=== PATIENT | female | born 1950 | race Caucasian/White ===

== ENCOUNTER → 2017-02-13 | Outpatient (CLI) | payer OTHER | LOC: FIMAGING 13:43 | DX: Z12.31 Encounter for screening mammogram for malignant neoplasm of breast (principal) | CPT/HCPCS: G0202 ==

== ENCOUNTER → 2018-02-14 | Outpatient (CLI) | payer OTHER | LOC: FIMAGING 13:12 | DX: Z12.31 Encounter for screening mammogram for malignant neoplasm of breast (principal) ==

== ENCOUNTER 2018-08-04 07:55 | Observation (INO) | payer OTHER ==
--- NOTE | 2018-08-04 08:12 | EDPHY ---
H & P Stated Complaint: slurred speech Time Seen by Provider: 08/04/18 08:00 HPI/ROS: CHIEF COMPLAINT: Slurred speech, difficulty walking HISTORY OF PRESENT ILLNESS: 68-year-old female presents after an episode of slurred speech and difficulty walking. She awoke at 0600 this morning and felt fine. She was in the car at 0700, coming to the hospital when she developed slurred speech, as if she were drunk and dropped an object that she was holding. Once she was out of the car, she was listing to one side and needed assistance to ambulate. The symptoms have now completely resolved. Her only complaint now is feeling sleepy. No headache or recent head injury. No prior similar symptoms. REVIEW OF SYSTEMS: complete 10 point ROS reviewed and is negative except for the noted elements in the HPI Source: Patient, Family - Social History Alcohol Use: Sober Drug Use: None Additional Social History: - Physical Exam Exam: General Appearance: Alert, pleasant, speech is clear Eyes: Pupils equal and round, no conjunctival pallor ENT, Mouth: Mucous membranes moist Neck: Normal inspection Respiratory: Lungs are clear to auscultation Cardiovascular: Regular rate and rhythm Gastrointestinal: Abdomen is soft and nontender Neurological: Alert, oriented x3, cranial nerves II through XII intact, motor 5 /5, sensory intact to light touch, normal gait Skin: Warm and dry, no rash Extremities: Nontender, no pedal edema Psychiatric: Mood and affect normal Constitutional: Initial Vital Signs Temperature (C) 37.1 C 08/04/18 08:01 Heart Rate 77 08/04/18 08:01 Respiratory Rate 18 08/04/18 08:01 Blood Pressure 132/89 H 08/04/18 08:01 O2 Sat (%) 92 08/04/18 08:01 O2 Delivery Mode Room Air Allergies/Adverse Reactions: shellfish derived Allergy (Verified 08/04/18 08:08) Home Medications: Medication Instructions Recorded Acetaminophen [Tylenol 325mg (*)] 650 mg PO BID PRN 08/04/18 Calcium Carbonate [Oyster Shell 1,500 mg PO DAILY 08/04/18 Calcium 500 mg (*)] Cholecalciferol Vit D3 [Vitamin D3 1,000 units PO DAILY 08/04/18 (*)] Herbals/Supplements -Info Only 1 ea PO DAILY 08/04/18 Latanoprost/Pf [Latanoprost 0.005% 1 drop EACHEYE HS 08/04/18 Eye Drop] Olopatadine HCl [Pataday] 1 drop EACHEYE DAILY PRN 08/04/18 Sparkman-3 Fatty Acids [Fish Oil 1000 1,000 mg PO DAILY 08/04/18 mg (*)] Timolol 0.5% [TIMOPTIC 0.5% (*)] 1 drops EACHEYE DAILY 08/04/18 Venlafaxine Xr [Effexor Xr 75MG 75 mg PO DAILY 08/04/18 (*)] Zolpidem Tartrate 10 mg PO HS PRN 08/04/18 Atorvastatin Calcium [Lipitor 40 40 mg PO DAILY #30 tab 08/05/18 mg (*)] Clopidogrel Bisulfate [Plavix (*)] 75 mg PO DAILY #30 tab 08/05/18 Medical Decision Making - Diagnostics EKG Interpretation: EKG interpreted by me reveals normal sinus rhythm, rate 75, no ST or T segment changes. Interpretation: Normal EKG Imaging Results: CT scan of the brain read by the radiologist reveals no acute infarct or hemorrhage. Imaging: Discussed imaging studies w/ call center coordinator Radiologist ED Course/Re-evaluation: This patient presents after an episode of slurred speech and difficulty walking , consistent with TIA. Symptoms have completely resolved. Neurologic exam is normal and NIH stroke score is 0. Stat EKG reveals no evidence of ischemia or dysrhythmia. CT scan is unremarkable, results discussed with the patient. She remains asymptomatic and neurologic exam is normal. Will admit for evaluation of TIA. The hospitalist service was consulted for admission. Differential Diagnosis: Altered mental status including but not limited to hypoglycemia, infectious process, electrolyte abnormality, head injury, CVA, and intoxicants. - Data Points Laboratory Results: Laboratory Results 08/04/18 08:15 08/04/18 08:15 Medications Given: Discontinued Medications Acetaminophen (Tylenol) 650 mg PO Q4HRS PRN PRN Reason: Pain, Mild/Fever, Can Take PO Stop: 01/31/19 09:07 Last Admin: 08/05/18 06:41 Dose: 650 mg Aspirin (Aspirin) 325 mg PO EDNOW ONE Stop: 08/04/18 08:50 Last Admin: 08/04/18 08:53 Dose: 325 mg Atorvastatin Calcium (Lipitor) 40 mg PO DAILY TANNER Stop: 02/01/19 08:59 Last Admin: 08/05/18 08:40 Dose: Not Given Calcium Carbonate (Oyster Shell Calcium) 1,500 mg PO DAILY TANNER Stop: 02/01/19 08:59 Last Admin: 08/05/18 08:40 Dose: Not Given Cholecalciferol (Vitamin D) 1,000 units PO DAILY TANNER Stop: 02/01/19 08:59 Last Admin: 08/05/18 08:41 Dose: 1,000 units Clopidogrel Bisulfate (Plavix) 75 mg PO DAILY TANNER Stop: 02/01/19 08:59 Last Admin: 08/05/18 08:41 Dose: 75 mg Enoxaparin Sodium (Lovenox) 40 mg SC DAILY TANNER Stop: 02/01/19 08:59 Last Admin: 08/05/18 08:41 Dose: 40 mg Sodium Chloride (Ns) 500 mls @ 1,000 mls/hr IV EDNOW ONE PRN Reason: Protocol Stop: 08/04/18 09:27 Last Admin: 08/04/18 09:03 Dose: 500 mls Latanoprost (Xalatan 0.005%) 1 drops EACHEYE HS TANNER Stop: 01/31/19 20:59 Last Admin: 08/04/18 21:19 Dose: 1 drop Uauzy-3-Djve Ethyl Esters (Fish Oil) 1,000 mg PO DAILY TANNER Stop: 02/01/19 08:59 Last Admin: 08/05/18 08:41 Dose: 1,000 mg Timolol Maleate (Timoptic 0.5%) 1 drops EACHEYE DAILY TANNER Stop: 02/01/19 08:59 Last Admin: 08/05/18 08:42 Dose: 1 drops Venlafaxine HCl (Effexor Xr) 75 mg PO DAILY TANNER Stop: 02/01/19 08:59 Last Admin: 08/05/18 08:41 Dose: 75 mg Zolpidem Tartrate (Ambien) 10 mg PO HS PRN PRN Reason: Sleep/Insomnia Last Admin: 08/04/18 21:21 Dose: 10 mg Point of Care Test Results: Chemistry 08/04/18 08:14 POC Troponin I 0.01 ng/mL ng/mL (0.00-0.08) Departure - Departure Disposition: [facility] Acute Clinical Impression: TIA (transient ischemic attack) Condition: Fair
[2018-08-04 08:41] LABS: PLATELET COUNT 290 10^3/uL (150-400)
[2018-08-04] MEDS ORDERED: ASPIRIN 325 MG TAB PO ONE (08:49)
[2018-08-04] MEDS ORDERED: NS 500 ML IV ONE (08:58)
[2018-08-04] MEDS ORDERED: ONDANSETRON 4 MG/2 ML VIAL IVP PRN (09:08)
[2018-08-04] MEDS ORDERED: ONDANSETRON DISINTEGRATING 4 MG TAB PO PRN (09:08)
--- NOTE | 2018-08-04 15:16 | PDGENHP ---
History and Physical - Chief Complaint Dysarthria, AMS - History of Present Illness Fauzia Simeon is a 68 y F with a PMHx of Anxiety who presents to [facility] for acute onset dysarthria, weakness, and AMS this AM. Her , sister, and niece are at bedside who have helped with hx taking. They report that when patient woke up this morning she was at baseline. They were driving to the hospital for her 's outpatient elective knee surgery when she acutely developed slurring of her speech and hand weakness that caused her to drop an item she was holding. When she left the care, she was unable to ambulate independently with weakness. She reports having little memory of these events and deficits. She denies any hx of similar symptoms. At the time of examination, all of these symptoms have resolved. She denies any weakness, speech difficulties, confusion, headache, chest pain, SOB, d/c, f/c, n/v, dysuria, visual/hearing changes, numbness/tingling, LH/dizziness. History Information - Allergies/Home Medication List Allergies/Adverse Reactions: shellfish derived Allergy (Verified 08/04/18 08:08) Home Medications: Acetaminophen [Tylenol 325mg (*)] 650 mg PO BID PRN 08/04/18 [Last Taken ] Calcium Carbonate [Oyster Shell Calcium 500 mg (*)] 1,500 mg PO DAILY 08/04/18 [ Last Taken 08/04/18] Cholecalciferol Vit D3 [Vitamin D3 (*)] 1,000 units PO DAILY 08/04/18 [Last Taken 08/04/18] Herbals/Supplements -Info Only 1 ea PO DAILY 08/04/18 [Last Taken 08/04/18] Latanoprost/Pf [Latanoprost 0.005% Eye Drop] 1 drop EACHEYE HS 08/04/18 [Last Taken 08/03/18] Olopatadine HCl [Pataday] 1 drop EACHEYE DAILY PRN 08/04/18 [Last Taken Unknown] [place]-3 Fatty Acids [Fish Oil 1000 mg (*)] 1,000 mg PO DAILY 08/04/18 [Last Taken 08/04/18] Timolol 0.5% [TIMOPTIC 0.5% (*)] 1 drops EACHEYE DAILY 08/04/18 [Last Taken ] Venlafaxine Xr [Effexor Xr 75MG (*)] 75 mg PO DAILY 08/04/18 [Last Taken ] Zolpidem Tartrate 10 mg PO HS PRN 08/04/18 [Last Taken 08/03/18] I have personally reviewed and updated: family history, medical history, social history, surgical history - Past Medical History Additional medical history: Anxiety - Surgical History Reports: no pertinent surgical hx - Family History Positive for: non-pertinent - Social History Smoking Status: Never smoked Alcohol Use: Sober Drug Use: None Review of Systems Review of Systems: ROS: 10pt was reviewed & negative except for what was stated in HPI & below Physical Exam Physical Exam: Temp Pulse Resp BP Pulse Ox 36.8 C 71 16 135/107 H 96 08/04/18 11:33 08/04/18 11:33 08/04/18 12:05 08/04/18 12:22 08/04/18 11:33 Constitutional: no apparent distress Eyes: PERRL Ears, Nose, Mouth, Throat: moist mucous membranes Cardiovascular: regular rate and rhythym Respiratory: no respiratory distress Gastrointestinal: soft, non-tender abdomen Skin: normal color Musculoskeletal: full muscle strength Neurologic: AAOx3, CN II-XII Intact, No weakness, No facial droop Psychiatric: interacting appropriately Lab Data & Imaging Review 08/04/18 08:15 08/04/18 08:15 WBC 4.83 10^3/uL (3.80-9.50) 08/04/18 08:15 RBC 4.20 10^6/uL (4.18-5.33) 08/04/18 08:15 Hgb 13.0 g/dL (12.6-16.3) 08/04/18 08:15 Hct 38.7 % (38.0-47.0) 08/04/18 08:15 MCV 92.1 fL (81.5-99.8) 08/04/18 08:15 MCH 31.0 pg (27.9-34.1) 08/04/18 08:15 MCHC 33.6 g/dL (32.4-36.7) 08/04/18 08:15 RDW 13.7 % (11.5-15.2) 08/04/18 08:15 Plt Count 290 10^3/uL (150-400) 08/04/18 08:15 MPV 9.6 fL (8.7-11.7) 08/04/18 08:15 Neut % (Auto) 40.7 % (39.3-74.2) 08/04/18 08:15 Lymph % (Auto) 39.3 % (15.0-45.0) 08/04/18 08:15 Norton % (Auto) 12.2 % (4.5-13.0) 08/04/18 08:15 Eos % (Auto) 6.4 % (0.6-7.6) 08/04/18 08:15 Baso % (Auto) 1.2 % (0.3-1.7) 08/04/18 08:15 Nucleat RBC Rel Count 0.0 % (0.0-0.2) 08/04/18 08:15 Absolute Neuts (auto) 1.96 10^3/uL (1.70-6.50) 08/04/18 08:15 Absolute Lymphs (auto) 1.90 10^3/uL (1.00-3.00) 08/04/18 08:15 Absolute Monos (auto) 0.59 10^3/uL (0.30-0.80) 08/04/18 08:15 Absolute Eos (auto) 0.31 10^3/uL (0.03-0.40) 08/04/18 08:15 Absolute Basos (auto) 0.06 10^3/uL (0.02-0.10) 08/04/18 08:15 Absolute Nucleated RBC 0.00 10^3/uL (0-0.01) 08/04/18 08:15 Immature Gran % 0.2 % (0.0-1.1) 08/04/18 08:15 Immature Gran # 0.01 10^3/uL (0.00-0.10) 08/04/18 08:15 Sodium 135 mEq/L (135-145) 08/04/18 08:15 Potassium 4.2 mEq/L (3.5-5.2) 08/04/18 08:15 Chloride 101 mEq/L (97-110) 08/04/18 08:15 Carbon Dioxide 28 mEq/l (22-31) 08/04/18 08:15 Anion Gap 6 mEq/L (6-14) 08/04/18 08:15 BUN 28 mg/dL (7-23) H 08/04/18 08:15 Creatinine 0.8 mg/dL (0.6-1.0) 08/04/18 08:15 Estimated GFR > 60 08/04/18 08:15 Glucose 85 mg/dL (70-100) 08/04/18 08:15 Hemoglobin A1c 5.6 % (4.0-6.0) 08/04/18 08:15 Estim Average Glucose 114 mg/dL (68-126) 08/04/18 08:15 Calcium 9.3 mg/dL (8.5-10.4) 08/04/18 08:15 POC Troponin I 0.01 ng/mL (0.00-0.08) 08/04/18 08:14 Triglycerides 129 mg/dL (35-135) 08/04/18 08:15 Cholesterol 202 mg/dL (140-220) 08/04/18 08:15 Cholesterol Risk Factr 0.5 (0.2-1.0) 08/04/18 08:15 LDL Cholesterol, Calc 109 mg/dL (80-100) H 08/04/18 08:15 LDL Risk Factor 0.6 (0.2-1.0) 08/04/18 08:15 VLDL Cholesterol 26 mg/dL (8-25) H 08/04/18 08:15 Non-HDL Cholesterol 135 mg/dL (90-129) H 08/04/18 08:15 HDL Cholesterol 67 mg/dL (40-85) 08/04/18 08:15 LDL/HDL Ratio 1.63 RATIO (1.00-3.22) 08/04/18 08:15 Cholesterol/HDL Ratio 3.01 RATIO (1.00-4.44) 08/04/18 08:15 Assessment & Plan Assessment: TIA - Presenting with dysarthria, weakness, gait instability that have since resolved - CT Head on admission without acute abnormalities - MRI Brain performed on admission which shows moderate volume b/l subcortical white matter disease suggestive of microvascular ischemic gliosis, otherwise negative MRI brain - Neurology consulted for further evaluation and management - TTE with bubble study ordered to evaluate for embolic source - Monitor on telemetry overnight to evaluate for arrythmia - Lipid panel and A1c ordered - Has an allergy to ASA, will defer to Neurology for 2ndary prevention - PT/OT/SLT consulted Anxiety - Continue home venlafaxine Glaucoma - Continue home eye drops FEN: IVF, Regular Code: FULL DVT PPx: Lovenox Dispo: Admit to Observation
--- NOTE | 2018-08-04 15:37 | CPEKG ---
Test Reason : OPEN Blood Pressure : / mmHG Vent. Rate : 075 BPM Atrial Rate : 075 BPM P-R Int : 174 ms QRS Dur : 085 ms QT Int : 410 ms P-R-T Axes : 035 044 063 degrees QTc Int : 458 ms Sinus rhythm Confirmed by Dora Perez ([id number]) on 08/04/2018 3:37:03 PM Referred By: Confirmed By:Dora Perez
[2018-08-04] MEDS ORDERED: ZOLPIDEM TARTRATE 5 MG TAB PO PRN (16:16)
[2018-08-04] MEDS ORDERED: OLOPATADINE HCL EACHEYE PRN (16:16)
--- NOTE | 2018-08-04 17:12 | ECHO ---
[email or web address] [address] [address] Main: [phone] Fax: Transthoracic Echocardiogram Name: FRANCISCO RUBI MR#: [id number] Study Date: 08/04/2018 Study Time: 03:41 PM Date of : 1950 Age: 68 year(s) Height: 157.5 cm (62 in.) Weight: 64.86 kg (143 lb.) BSA: 1.66 m2 Gender: Female Examination: Complete Echo with Agitated Saline Indication: Confusion Image Quality: Contrast: Requested by: Fidel Chen BP: 136 mmHg/80 mmHg Heart Rate: Rhythm: Normal sinus rhythm Indication: Confusion Procedure Staff Terrazzo Layer Helper: Raheem Richter RDCS Reading Physician: Jeremiah Abbott MD Requesting Provider: Conclusions: Normal size left ventricle. No LV hypertrophy. Normal global systolic LV function. EF is 75 %. No regional wall motion abnormality. Grade 1 diastolic dysfunction (abnormal relaxation). Normal RV function. The left atrium is normal in size. An agitated saline study was performed and was negative for intracardiac shunting. The right atrium is normal in size. No pericardial effusion. Measurements: Chambers Valvular Assessment AV/MV Valvular Assessment TV/PV Normal Normal Normal Name Value Range Name Value Range Name Value Range Ao Shayla (MM): 2.6 cm (2.2 cm-3.7 AV Vmax: 1.21 m/s (1 m/s-1.7 PV Vmax: 0.77 m/s (0.6 m/s-0.9 cm) m/s) m/s) IVSd (2D): 0.8 cm (0.6 cm-1.1 AV maxP mmHg ( - ) PV PGmax: 2 mmHg ( - ) cm) LVOT Vmax: 0.82 m/s (0.7 m/s-1.1 LVDd (2D): 4.1 cm (3.9 cm-5.3 m/s) cm) MV E Vmax: 0.70 m/s ( - ) LVDs (2D): 2.3 cm (2.1 cm-4 MV A Vmax: 0.94 m/s ( - ) cm) MV E/A: 0.74 ( - ) LVPWd (2D): 0.9 cm ( - ) LVEF (2D): 75 (>=54 %) Continued Measurements: Chambers Valvular Assessment AV/MV Patient: FRANCISCO RUBI Study Date: 08/04/2018 Page 1 of 2 03:41 PM Name Value Name Value LADs: 2.6 cm MV E' Septal: 0.07 m/s LADs Lon.2 cm MV E/E' Septal: 10.30 LA Area: 10.0 cm2 MV E/E' Lateral: 9.20 LA Volume: 24 ml LA Volume Index: 14.5 ml/m2 Findings: Left Ventricle: Normal size left ventricle. No LV hypertrophy. Normal global systolic LV function. EF is 75 %. No regional wall motion abnormality. Grade 1 diastolic dysfunction (abnormal relaxation). Right Ventricle: Normal size right ventricle. Normal RV function. Left Atrium: The left atrium is normal in size. An agitated saline study was performed and was negative for intracardiac shunting. Right Atrium: The right atrium is normal in size. Mitral Valve: The mitral valve is normal in appearance. Trivial to mild mitral regurgitation. Aortic Valve: The aortic valve is normal in appearance and function. The aortic valve is tri-leaflet. There is no significant aortic valve regurgitation. Tricuspid Valve: The tricuspid valve is normal in appearance and function. There is no significant tricuspid valve regurgitation. Pulmonic Valve: The pulmonic valve is normal in appearance and function. Aorta: The aorta is normal. Pericardium: No pericardial effusion. (No Signature Object) Patient: FRANCISCO RUBI Study Date: 08/04/2018 Page 2 of 2 03:41 PM [id number]
--- NOTE | 2018-08-04 18:40 | GCON ---
NEUROLOGIC CONSULTATION REFERRING PHYSICIAN: Fidel Chen DO HISTORY: The patient is a 68-year-old woman who I am asked to see in neurologic consultation regarding an episode that occurred this morning after she got up. She did not sleep much very well last night because she was helping take care of her who was coming in for surgery this morning. She had gotten up and had not eaten much and was helping him get ready. After she got up, she seemed to be stable and, although she was not communicating much with her , he did not recognize anything unusual initially. By the time they got in the car and started driving toward the hospital it was around 7 a.m. or so, and by 7:15 in the morning, she was falling asleep in the car, which seemed a little bit unusual, and when she was communicating, she was sometimes a little bit illogical, making reference to ice on the road, which was not an issue. They did not think much of it, but knew it was not quite right. They came to the surgery center and she was in the waiting room and at that point, it was clear that she was also having trouble walking and looked as if she was drunk. She continued to be fairly lethargic and her niece said that it looked as if she was falling asleep and communicating with somewhat slurred and slow words. The patient really does not remember these aspects of the episode at all. She was then assessed by staff and sent to the emergency room where she was evaluated and ultimately had head CT that was unremarkable and MRI that showed no stroke. She was admitted and being monitored for possible TIA. Symptoms resolved somewhere after about an hour and a half or 2 and she started to remember things after she was in the emergency room. When her sister came in, she also said the patient seemed lethargic but then spoke to her and recognized her, but the patient does not remember this interactions either. She has not had any recurrence of symptoms. She has not had this in the past. Other than having some elevated cholesterol, she has generally been fairly healthy. She says she has an allergy to aspirin. She has not had any recent infections. She has some history of anxiety. No prior history of smoking. No alcohol or drug use. She is . REVIEW OF SYSTEMS: Otherwise a 10-point review of systems unremarkable. With no chest pain, palpitations, or shortness of breath. MEDICATIONS: At home, Tylenol, fish oil, vitamin D, Effexor, calcium, Ambien as needed, latanoprost for eye drops. I confirmed with the patient that she had taken her Ambien last night 10 mg. She did not think it was anything unusual, however. PHYSICAL EXAM: VITAL SIGNS: Blood pressure 136/80, pulse of 76, respirations 15, temperature 36.8. GENERAL: She is well developed, in no acute distress. NECK: Supple with no bruits or masses. CARDIAC: Regular rate and rhythm. No murmur. NEUROLOGIC: She is alert and attentive, with clear and fluent speech, but she is amnestic for about an hour or an hour and a half of time with the onset of this phenomenon. She is fully oriented and able to communicate effectively now. Pupils 3 mm and reactive. No visual field loss. Extraocular movements intact. Normal facial sensation and strength. She has clear articulate speech. Palate elevates symmetrically and tongue protrudes midline. Motor exam reveals normal muscle bulk and tone with 5/5 strength and no abnormal movements. Sensation is preserved for temperature and light touch. No ataxia on [id number]. Reflexes are 2+ and symmetric with no pathologic reflexes. LABORATORY STUDIES: Reveals an LDL cholesterol of 109. Otherwise unremarkable and CBC is normal. I reviewed the other diagnostic studies as mentioned above with no evidence of acute stroke on CT or MRI, but some nonspecific microvascular change, and unremarkable echo with a negative bubble study. The NIH Stroke Scale is 0. ASSESSMENT: Total unit time of 50 minutes. The patient has experienced an episode of lethargy, relative amnesia, mild slurring of words and unsteadiness of uncertain source. The differential considerations could include simply being lethargic and sleepy because of sleep deprivation and she had also taken her 10 mg dose of Ambien during the night. The description is a little more typical for a phenomenon such as that as opposed to a TIA based on the fact that this does not fit a very specific vascular distribution for an occlusion or an embolic phenomenon. She also had not eaten much food and all of this together may have led to this phenomenon that has now resolved back to baseline. I do not think it was seizure or migraine phenomenon. At this point, we have not identified any specific source for this to have occurred if it were primarily ischemic in nature. I will check a carotid ultrasound to complete the workup. Because of uncertainty, I think I would lean toward putting her on Plavix 75 mg daily and keep her on that permanently. She says she has an allergy to aspirin, so we are not going to use that. If all is well over night, then she should be able to be discharged tomorrow. Importantly, she did mention a family history with 4 of 8 siblings having tested positive for some clotting disorders. She says her sister definitely has history of Factor 5 Leiden mutation as well as prothrombin gene mutation she believes. The patient has never had any known clotting problems, but with a strong family history and this event, we will go ahead and check that as well. At this point, I would still anticipate using anti-platelet therapy as opposed to anticoagulation. Hopefully, she will be doing well and can be discharged tomorrow and then we can follow up as an outpatient on a hypercoagulable workup and any other issues that might arise. It would probably be most appropriate for her to no longer take 10 mg of Ambien, which is generally the recommendation for women, and only use the 5 just to minimize the risk of side effects, if that was involved in this case at all. /[id number]/MODL MTDD
[2018-08-04 19:04] LABS: INR 0.9 (0.83-1.16); PROTIME(PATIENT) 12.4 SEC (12.0-15.0)
[2018-08-04] MEDS ORDERED: LATANOPROST 0.005% 2.5 ML OPHT DROPS EACHEYE SCH (21:00)
[2018-08-04] MEDS: ACETAMINOPHEN 325 MG TAB PO PRN (21:21)
[2018-08-05] MEDS: ACETAMINOPHEN 325 MG TAB PO PRN (06:41)
--- NOTE | 2018-08-05 08:01 | NEUROPROG ---
Assessment: Total unit time of 25 min. The patient has experienced an episode of either TIA or other nonspecific encephalopathy with multiple, potential contributing factors as outlined in the consultation. I believe she is safe for discharge and can follow up as needed or within the next month in my office to follow up on the results of hypercoagulable testing. Subjective: The patient says that she feels back to herself with no new complaints or recurrence of symptoms. Objective: Vital Signs Temp Pulse Resp BP Pulse Ox 36.6 C 74 16 139/90 H 98 08/05/18 04:00 08/05/18 04:00 08/05/18 04:00 08/05/18 04:00 08/05/18 04:00 08/04/18 08/05/18 08/06/18 05:59 05:59 05:59 Intake Total 800 Output Total 2400 Balance -1600 PT 12.4 SEC (12.0-15.0) 08/04/18 18:39 INR 0.90 (0.83-1.16) 08/04/18 18:39 She is alert and attentive with a normal neurologic examination. Carotid ultrasound results show no hemodynamically significant stenosis. Allergies/Adverse Reactions: shellfish derived Allergy (Verified 08/04/18 08:08)
[2018-08-05 08:20] VITALS: BP 117/78
[2018-08-05] MEDS ORDERED: CHOLECALCIFEROL VIT D3 1,000 UNITS TAB PO SCH (09:00)
[2018-08-05] MEDS ORDERED: OMEGA-3 FATTY ACIDS 1,000 MG CAP PO SCH (09:00)
[2018-08-05] MEDS ORDERED: CALCIUM CARBONATE 500 MG TAB PO SCH (09:00)
[2018-08-05] MEDS ORDERED: VENLAFAXINE XR 75 MG CAP PO SCH (09:00)
[2018-08-05] MEDS ORDERED: ATORVASTATIN CALCIUM 40 MG TAB PO SCH (09:00)
[2018-08-05] MEDS ORDERED: CLOPIDOGREL BISULFATE 75 MG TAB PO SCH (09:00)
[2018-08-05] MEDS ORDERED: ENOXAPARIN 40 MG/0.4 ML SYR SC SCH (09:00)
[2018-08-05] MEDS ORDERED: TIMOLOL 0.5% 15 ML OPHT.BTL EACHEYE SCH (09:00)
--- NOTE | 2018-08-05 12:28 | ASMTLACE ---
ABBEE Length of stay for Answers: 2 days current admission Acuity / Level of Answers: No Care: Did the patient have an inpatient admission? # of Emergency department Answers: 1-2 visits in the last 6 months Social determinants Answers: Mental health diagnosis (anxiety, depression, pers onality disorders, etc.) Score: 6 Date Signed: 08/05/2018 12:27 PM Electronically Signed By:KATIE Castle
--- NOTE | 2018-08-05 12:29 | ASMTCMCOM ---
CM Note CM Note Notes: Pt in for TIA, symptoms resolved. Pt resides with spouse. [employer] and neurology clear pt for home. No PT/OT evals in [facility] to date. Pt medically stable for d/c, no CM d/c needs identified. Date Signed: 08/05/2018 12:29 PM Electronically Signed By:KATIE Castle
--- NOTE | 2018-08-05 16:29 | PDDCSUM ---
Discharge Summary Discharge Summary: Date of Admission: 08/04/2018 Date of Discharge: 08/05/2018 Consults: Neurology Procedures: CT Head, Brain MRI, CTA Head/Neck Followup: PCP, Neurology Hospital Course Problem List: TIA - Presenting with dysarthria, weakness, gait instability that have since resolved - CT Head on admission without acute abnormalities - MRI Brain performed on admission which shows moderate volume b/l subcortical white matter disease suggestive of microvascular ischemic gliosis, otherwise negative MRI brain - Neurology consulted for further evaluation and management, they believe this may be dehydration with medication SE (Ambien) vs. TIA, they recommend continued Plavix as outpatient (due to ASA allergy) as well as statin, they will f/u with patient in 1 month - TTE with bubble study negative for shunting, showed Grade 1 diastolic dysfunction - Monitor on telemetry overnight with no evidence of arrythymia - PT/OT/SLT Anxiety - Continue home venlafaxine Glaucoma - Continue home eye drops Time spent on discharge was >35 minutes with >50% of time spent on patient education and counseling.
== END 2018-08-05 12:01 | disposition home or self-care (01) ==
LOC: F3N 11:43
PROVIDERS: ADMIT Internal Medicine; ATTEND Internal Medicine
DX: G45.9 Transient cerebral ischemic attack, unspecified (principal); F41.9 Anxiety disorder, unspecified; H40.9 Unspecified glaucoma; E86.0 Dehydration
CPT/HCPCS: 70450; 70551; 92523; 93005; 93306; 93880; 97161; 97165; 99285; G0378; 84484-ER; 85300-90; 85303-90; 85306-90; 86147-90; J1650